=== PATIENT | female | born 1990 | race Caucasian/White ===

== ENCOUNTER 2024-01-23 19:09 | Emergency (ER) | payer OTHER ==
[~2024-01-23] VITALS: Ht 157.5 cm; Wt 73.6 kg
[2024-01-23 20:33] VITALS: TEMP 98.8
[2024-01-23 20:50] VITALS: BP 129/81; PULSE 83; RESP 17
== END 2024-01-23 20:40 | disposition left against medical advice (07) ==
LOC: EMS 19:11
DX: S00.83XA Contusion of other part of head, initial encounter (principal); M79.81 Nontraumatic hematoma of soft tissue; Y08.89XA Assault by other specified means, initial encounter; Y93.89 Activity, other specified; Y92.89 Other specified places as the place of occurrence of the external cause; Y99.8 Other external cause status
CPT/HCPCS: 99283; Z7502

== ENCOUNTER 2024-06-12 21:31 | Emergency (ER) | payer OTHER ==
[~2024-06-12] VITALS: Ht 157.5 cm; Wt 77.3 kg
[2024-06-12 21:33] VITALS: BP 104/69; PULSE 98; RESP 18; TEMP 97.7; O2SAT 98
== END 2024-06-12 23:14 | disposition home or self-care (01) ==
LOC: EMS 21:31
DX: O34.512 Maternal care for incarceration of gravid uterus, second trimester (principal); O99.312 Alcohol use complicating pregnancy, second trimester; Z3A.19 19 weeks gestation of pregnancy; I10 Essential (primary) hypertension; F10.129 Alcohol abuse with intoxication, unspecified; Y90.6 Blood alcohol level of 120-199 mg/100 ml
CPT/HCPCS: 99284; 76801; 84703; 36415; G0480